=== PATIENT | female | born 1955 | race Caucasian/White ===

== ENCOUNTER 2025-01-28 08:37 | Day surgery (SDC) | payer MEDICARE ==
[2025-01-28] MEDS ORDERED: Propofol 200 MG/20 ML SDV ONE (08:50)
[2025-01-28] MEDS ORDERED: Midazolam 1 MG/ML 2 ML SDV ONE (08:51)
[2025-01-28] MEDS ORDERED: fentaNYL 100 MCG/2 ML SDV ONE (08:51)
[2025-01-28] MEDS: Lactated Ringers 1,000 ML IV SCH (09:22)
[2025-01-28] MEDS ORDERED: Ondansetron 4 MG/2 ML SDV ONE (09:54)
== END 2025-01-28 11:20 | disposition home or self-care (01) ==
LOC: JP.SDS 08:37
PROVIDERS: ATTEND Surgery
DX: Z12.11 Encounter for screening for malignant neoplasm of colon (principal)
CPT/HCPCS: G0121; J2250; J2405; J2704; J3010; J7120